=== PATIENT | female | born 1965 ===

== ENCOUNTER 2023-09-16 13:30 | Outpatient (RCR) | payer BC | END 2023-09-18 | disposition home or self-care (01) | LOC: WSC | DX: M48.07 Spinal stenosis, lumbosacral region (principal); M54.41 Lumbago with sciatica, right side; M54.42 Lumbago with sciatica, left side ==

== ENCOUNTER → 2023-09-30 | Outpatient (CLI) | payer BC | LOC: MHCPAIN 14:44 | DX: M47.897 Other spondylosis, lumbosacral region (principal); M54.16 Radiculopathy, lumbar region; M51.36 Other intervertebral disc degeneration, lumbar region | CPT/HCPCS: G0463 ==

== ENCOUNTER 2023-10-03 14:15 | Outpatient (RCR) | payer BC | END 2023-10-19 | disposition home or self-care (01) | LOC: WSPT | DX: M48.07 Spinal stenosis, lumbosacral region (principal) ==